=== PATIENT | male | born 1965 | race Caucasian/White ===

== ENCOUNTER 2016-05-23 08:51 | Emergency (ER) | payer OTHER, MEDICAID ==
[~2016-05-23] VITALS: Ht 193 cm; Wt 91.6 kg
[~2016-05-23 08:51] MED LIST: ALBMDI INH; ALPR1TAB2 PO; ALPR2TAB2 PO; BECL8.7A5 INH; BECL8.7A6 IH; HYDR-4100 PO; HYDR2TAB34; IPRA14.73; METHADONE PO; NORCO; TEMAZEPAM; [UNRECOGNIZED DRUG - CODE] PO; [UNRECOGNIZED DRUG - OTHER]; morphine sulfate PO
[2016-05-23 08:57] VITALS: BP 156/78; PULSE 101; RESP 20; TEMP 97.9; O2SAT 97
--- NOTE | 2016-05-23 09:05 | NUR ---
ER at bedside examining patient.
--- NOTE | 2016-05-23 09:06 | NUR ---
Nancie garza in EDM - 05/23/16 at 0910 by CARY Pt placed to ER bed 08 and to sulaiman. Pt report given to JONN Castillo.
--- NOTE | 2016-05-23 09:10 | NUR ---
Pt placed to ER bed 04 and to gown. Pt report given to JONN Castillo.
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
[2016-05-23 09:32] LABS: BASOPHILS % (AUTO) 0.4 % (0.0-2.0); EOSINOPHILS # (AUTO) 0.1 K/uL (0.0-0.4); EOSINOPHILS % (AUTO) 1.2 % (0.0-4.0); HEMATOCRIT 41.5 % (36-54); HEMOGLOBIN 14.1 g/dL (14.0-18.0); LYMPHOCYTES # (AUTO) 2.9 K/uL (1.0-5.5); LYMPHOCYTES % (AUTO) 26.5 % (20.5-51.5); MEAN CORPUSCULAR HEMOGLOBIN 32 pg (27-31); MEAN CORPUSCULAR HGB CONC 34 % (32-36); MEAN CORPUSCULAR VOLUME 94 fL (79.0-98.0); MONOCYTES % (AUTO) 8.8 % (1.7-9.3); NEUTROPHILS % (AUTO) 63.1 % (40.0-70.0); PLATELET COUNT (AUTO) 329 K/uL (130-430); RED BLOOD CELL COUNT(AUTO) 4.44 MIL/uL (4.2-6.2); RED CELL DISTRIBUTION WIDTH 14.3 % (9.0-15.0)
[2016-05-23 09:53] LABS: CALCIUM 8.7 mg/dL (8.4-11.0); CREATININE 0.99 mg/dL (0.55-1.30)
[2016-05-23 09:59] LABS: ALBUMIN 4.2 g/dL (3.4-4.8); TOTAL BILIRUBIN 0.2 mg/dL (0.0-1.0); TOTAL PROTEIN, SERUM 7.2 g/dL (6.4-8.3)
--- NOTE | 2016-05-23 10:00 | NUR ---
Pt to rad dept via ambulation.
--- NOTE | 2016-05-23 10:15 | NUR ---
Pt returned from rad dept. Pt tolerated well.
--- NOTE | 2016-05-23 11:30 | NUR ---
Pt given sling, pt tolerated well.
[2016-05-23 11:38] LABS: BILIRUBIN,URINE NEGATIVE (NEGATIVE); BLOOD, URINE NEGATIVE (NEGATIVE); CLARITY/URINE CLEAR (CLEAR); COLOR,URINE YELLOW (YELLOW); GLUCOSE,URINE NEGATIVE (NEGATIVE); KETONES,URINE NEGATIVE (NEGATIVE); LEUKOCYTE ESTERASE ,URINE NEGATIVE (NEGATIVE); NITRITE, URINE NEGATIVE (NEGATIVE); PH,URINE 5.5 (5.0-8.0); PROTEIN URINE NEGATIVE (NEGATIVE); UROBILINOGEN,URINE 0.2 (0.2-1.0)
[2016-05-23 12:05] VITALS: BP 148/76; PULSE 88; RESP 20; TEMP 97.9; O2SAT 97
--- NOTE | 2016-05-23 12:05 | NUR ---
Patient given written and verbal discharge instructions and verbalizes understanding. ER MD discussed with patient the results and treatment provided. Given copies of tests performed in ER. Patient in stable condition. ID arm band removed. Rx of tramadol,bacitracin given. Patient educated on pain management and to follow up with PMD. Pain Scale 3. Opportunity for questions provided and answered.
== END 2016-05-23 12:05 | disposition home or self-care (01) ==
LOC: SED 08:51
DX: S13.4XXA Sprain of ligaments of cervical spine, initial encounter (principal); S40.011A Contusion of right shoulder, initial encounter; S81.801A Unspecified open wound, right lower leg, initial encounter; J45.909 Unspecified asthma, uncomplicated; J44.9 Chronic obstructive pulmonary disease, unspecified; V89.2XXA Person injured in unspecified motor-vehicle accident, traffic, initial encounter; Y93.89 Activity, other specified; Y92.89 Other specified places as the place of occurrence of the external cause; Y99.8 Other external cause status
CPT/HCPCS: 36415; 72040; 73030; 73590; 80053; 81003; 85025; 99285; J7030

== ENCOUNTER 2016-08-03 08:41 | Emergency (ER) | payer OTHER, MEDICAID ==
[~2016-08-03] VITALS: Ht 193 cm; Wt 88.9 kg
[2016-08-03 08:41] VITALS: BP_SYST 92
[~2016-08-03 08:41] MED LIST changes: -ALPR1TAB2 PO; -BECL8.7A6 IH; -HYDR2TAB34; -METHADONE PO; -NORCO; -TEMAZEPAM; -[UNRECOGNIZED DRUG - OTHER]
[2016-08-03] MEDS ORDERED: IPRATROPIUM BROM 0.5 MG/2.5 ML VIAL.NEB (ATROVENT) INH ONE (08:45)
[2016-08-03] MEDS ORDERED: ALBUTEROL SULFATE 0.083% 2.5 MG/3 ML VIAL.NEB INH ONE ×2 (08:45→08:53)
[2016-08-03] MEDS ORDERED: methylPREDNISolone SOD SUCC/PF 62.5 MG/ML VIAL IVP ONE (08:45)
[2016-08-03 09:08] LABS: BASOPHILS % (AUTO) 0.2 % (0.0-2.0); HEMATOCRIT 44.4 % (36-54); HEMOGLOBIN 14.2 g/dL (14.0-18.0); LYMPHOCYTES # (AUTO) 1.1 K/uL (1.0-5.5); LYMPHOCYTES % (AUTO) 12.6 % (20.5-51.5); MEAN CORPUSCULAR HEMOGLOBIN 30 pg (27-31); MEAN CORPUSCULAR HGB CONC 32 % (32-36); MEAN CORPUSCULAR VOLUME 92 fL (79.0-98.0); MONOCYTES # (AUTO) 0.3 K/uL (0.0-1.0); NEUTROPHILS # (AUTO) 7.4 K/uL (1.8-7.7); NEUTROPHILS % (AUTO) 84.2 % (40.0-70.0); PLATELET COUNT (AUTO) 280 K/uL (130-430); RED BLOOD CELL COUNT(AUTO) 4.82 MIL/uL (4.2-6.2); RED CELL DISTRIBUTION WIDTH 12.5 % (9.0-15.0); WHITE BLOOD COUNT (AUTO) 8.8 K/uL (4.8-10.8)
[2016-08-03 09:10] LABS: CALCIUM 9.5 mg/dL (8.4-11.0); CREATININE 1.02 mg/dL (0.55-1.30); POTASSIUM 4.6 mmol/L (3.5-5.1)
[2016-08-03 09:15] LABS: ALBUMIN 4.4 g/dL (3.4-4.8); TOTAL BILIRUBIN 0.4 mg/dL (0.0-1.0); TOTAL PROTEIN, SERUM 8.2 g/dL (6.4-8.3)
[2016-08-03 09:45] VITALS: BP_SYST 116
== END 2016-08-03 09:45 | disposition home or self-care (01) ==
LOC: SED 08:41
DX: J44.9 Chronic obstructive pulmonary disease, unspecified (principal)
CPT/HCPCS: 36415; 71010; 80053; 83880; 84484; 85025; 93005; 94640; 96374; 99285; J2930

== ENCOUNTER 2016-10-19 12:01 | Emergency (ER) | payer OTHER, MEDICAID ==
[~2016-10-19] VITALS: Ht 193 cm; Wt 81.6 kg
[2016-10-19 12:07] VITALS: BP_SYST 108
[2016-10-19] MEDS ORDERED: IPRATROPIUM/ALBUTEROL SULFATE 3 ML AMPUL.NEB ONE (12:14)
[2016-10-19] MEDS ORDERED: PREDNISONE 20 MG TABLET PO ONE (12:45)
[2016-10-19] MEDS ORDERED: IPRATROPIUM/ALBUTEROL SULFATE 3 ML AMPUL.NEB INH ONE (12:45)
[2016-10-19 13:20] VITALS: BP_SYST 122
== END 2016-10-19 13:20 | disposition home or self-care (01) ==
LOC: SED 12:01
DX: J45.901 Unspecified asthma with (acute) exacerbation (principal); F17.210 Nicotine dependence, cigarettes, uncomplicated
CPT/HCPCS: 36600; 71010; 82803; 94640; 99285; J7512

== ENCOUNTER 2016-11-14 04:15 | Emergency (ER) | payer OTHER, MEDICAID ==
[~2016-11-14] VITALS: Ht 190.5 cm; Wt 81.6 kg
[2016-11-14 04:15] VITALS: BP_SYST 122
--- NOTE | 2016-11-14 04:15 | NUR ---
Patient to ER bed 2 to gown for evaluation. Side rails up.
--- NOTE | 2016-11-14 04:16 | NUR ---
PT IN BED 2 WITH C/O SOB ,COUGH AND TIGHTNESS IN CHEST . HX OF ASTHMA. 02 SATS [address] KAY AWARE.
--- NOTE | 2016-11-14 04:17 | NUR ---
ER at bedside examining patient.
[2016-11-14] MEDS ORDERED: methylPREDNISolone SOD SUCC/PF 62.5 MG/ML VIAL IM ONE (04:30)
[2016-11-14] MEDS ORDERED: IPRATROPIUM/ALBUTEROL SULFATE 3 ML AMPUL.NEB INH ONE ×2 (04:30→05:15)
[2016-11-14] MEDS ORDERED: IPRATROPIUM/ALBUTEROL SULFATE 3 ML AMPUL.NEB ONE (04:36)
--- NOTE | 2016-11-14 04:39 | NUR ---
RT AT PT'S BEDSIDE , TOLERATING RESP TX WELL.
--- NOTE | 2016-11-14 05:10 | NUR ---
RECEIVING RESP TX PER ORDERS , TOLERATED WELL.
[2016-11-14] MEDS ORDERED: KETOROLAC TROMETHAMINE 60 MG/2 ML VIAL IM ONE (06:00)
--- NOTE | 2016-11-14 06:00 | NUR ---
PT STATES HE 'FEELS MUCH BETTER ,' DR KAY AWARE.
--- NOTE | 2016-11-14 06:25 | NUR ---
Patient given written and verbal discharge instructions and verbalizes understanding. ER MD discussed with patient the results and treatment provided. Patient in stable condition. ID arm band removed. Rx of ALBUTEROL,PREDNISONE,ATROVENT given. Patient educated on pain management and to follow up with PMD. Pain Scale 4/10. Opportunity for questions provided and answered.
[2016-11-14 06:29] VITALS: BP_SYST 112
== END 2016-11-14 06:29 | disposition home or self-care (01) ==
LOC: SED 04:15
DX: J44.1 Chronic obstructive pulmonary disease with (acute) exacerbation (principal); R03.0 Elevated blood-pressure reading, without diagnosis of hypertension
CPT/HCPCS: 71010; 94640; 96372; 99284; J1885; J2930

== ENCOUNTER 2016-11-14 11:59 | Emergency (ER) | payer OTHER, MEDICAID ==
[~2016-11-14] VITALS: Ht 190.5 cm; Wt 79.4 kg
[2016-11-14 12:00] VITALS: BP_SYST 119
[2016-11-14] MEDS ORDERED: methylPREDNISolone SOD SUCC/PF 62.5 MG/ML VIAL IVP ONE (12:15)
[2016-11-14] MEDS ORDERED: ALBUTEROL SULFATE 0.083% 2.5 MG/3 ML VIAL.NEB INH ONE ×2 (12:15)
[2016-11-14] MEDS ORDERED: IPRATROPIUM BROM 0.5 MG/2.5 ML VIAL.NEB (ATROVENT) INH ONE ×2 (12:15→12:16)
[2016-11-14 12:27] LABS: BASOPHILS % (AUTO) 0.1 % (0.0-2.0); HEMATOCRIT 43.2 % (36-54); HEMOGLOBIN 14.1 g/dL (14.0-18.0); LYMPHOCYTES # (AUTO) 0.6 K/uL (1.0-5.5); LYMPHOCYTES % (AUTO) 8.3 % (20.5-51.5); MEAN CORPUSCULAR HEMOGLOBIN 30 pg (27-31); MEAN CORPUSCULAR HGB CONC 33 % (32-36); MEAN CORPUSCULAR VOLUME 93 fL (79.0-98.0); MONOCYTES % (AUTO) 0.4 % (1.7-9.3); NEUTROPHILS # (AUTO) 6.9 K/uL (1.8-7.7); NEUTROPHILS % (AUTO) 91.2 % (40.0-70.0); PLATELET COUNT (AUTO) 350 K/uL (130-430); RED BLOOD CELL COUNT(AUTO) 4.66 MIL/uL (4.2-6.2); RED CELL DISTRIBUTION WIDTH 13.4 % (9.0-15.0); WHITE BLOOD COUNT (AUTO) 7.5 K/uL (4.8-10.8)
[2016-11-14 12:35] LABS: CREATININE 1.26 mg/dL (0.55-1.30); POTASSIUM 4.6 mmol/L (3.5-5.1)
[2016-11-14 12:42] LABS: ALBUMIN 4.4 g/dL (3.4-4.8); TOTAL BILIRUBIN 0.6 mg/dL (0.0-1.0)
[2016-11-14] MEDS ORDERED: ALBUTEROL MDI INHALATION 8 GM INH INH ONE (13:30)
[2016-11-14 13:52] VITALS: BP_SYST 144
== END 2016-11-14 13:55 | disposition home or self-care (01) ==
LOC: SED 11:59
DX: J44.1 Chronic obstructive pulmonary disease with (acute) exacerbation (principal); Z79.899 Other long term (current) drug therapy
CPT/HCPCS: 36415; 71010; 80053; 83880; 85025; 85730; 93005; 94640; 96374; 99285; J2930

== ENCOUNTER 2016-11-16 07:30 | Emergency (ER) | payer OTHER, MEDICAID ==
[~2016-11-16] VITALS: Ht 193 cm; Wt 79.4 kg
[2016-11-16 07:41] VITALS: BP_SYST 130
[2016-11-16] MEDS ORDERED: IPRATROPIUM/ALBUTEROL SULFATE 3 ML AMPUL.NEB INH ONE ×2 (07:45→08:15)
[2016-11-16] MEDS ORDERED: NACL 0.9% 500 ML IV ONE (07:45)
[2016-11-16] MEDS ORDERED: NS 500 ML IV ONE (07:45)
[2016-11-16 08:20] LABS: BASOPHILS # (AUTO) 0.1 K/uL (0.0-0.2); BASOPHILS % (AUTO) 0.7 % (0.0-2.0); HEMATOCRIT 42.5 % (36-54); HEMOGLOBIN 13.6 g/dL (14.0-18.0); LYMPHOCYTES # (AUTO) 1.1 K/uL (1.0-5.5); LYMPHOCYTES % (AUTO) 8.1 % (20.5-51.5); MEAN CORPUSCULAR HEMOGLOBIN 29 pg (27-31); MEAN CORPUSCULAR HGB CONC 32 % (32-36); MEAN CORPUSCULAR VOLUME 92 fL (79.0-98.0); MONOCYTES # (AUTO) 0.7 K/uL (0.0-1.0); MONOCYTES % (AUTO) 5.2 % (1.7-9.3); NEUTROPHILS # (AUTO) 11.9 K/uL (1.8-7.7); PLATELET COUNT (AUTO) 334 K/uL (130-430); RED BLOOD CELL COUNT(AUTO) 4.61 MIL/uL (4.2-6.2); RED CELL DISTRIBUTION WIDTH 13.8 % (9.0-15.0)
[2016-11-16 08:22] LABS: WHITE BLOOD COUNT (AUTO) 13.8 K/uL (4.8-10.8)
[2016-11-16 08:31] LABS: CALCIUM 9.3 mg/dL (8.4-11.0); CREATININE 1.03 mg/dL (0.55-1.30); POTASSIUM 4.7 mmol/L (3.5-5.1)
[2016-11-16 08:33] LABS: INR 1.1 (0.80-1.20); PROTHROMBIN TIME 11.6 SECS (9.5-12.5)
[2016-11-16 08:35] LABS: ALBUMIN 4.2 g/dL (3.4-4.8); TOTAL BILIRUBIN 0.3 mg/dL (0.0-1.0)
[2016-11-16] MEDS ORDERED: KETOROLAC TROMETHAMINE 30 MG VIAL IVP ONE (09:00)
[2016-11-16] MEDS ORDERED: MORPHINE 2 MG/ML INJ. SYRINGE IVP ONE (09:30)
[2016-11-16 10:19] VITALS: BP_SYST 130
== END 2016-11-16 10:19 | disposition home or self-care (01) ==
LOC: SED 07:30
DX: J44.1 Chronic obstructive pulmonary disease with (acute) exacerbation (principal)
CPT/HCPCS: 36415; 36600; 71010; 80053; 82803; 83880; 85025; 85610; 85730; 87040; 93005; 94640; 96361; 96374; 96375; 99285; J1885; J2270; J7030

== ENCOUNTER 2018-10-03 07:15 | Emergency (ER) | payer OTHER, MEDICAID ==
[~2018-10-03] VITALS: Ht 193 cm; Wt 87.1 kg
[2018-10-03 07:15] VITALS: BP_SYST 150
[~2018-10-03 07:15] MED LIST changes: -ALBMDI INH; +ALBU2.5V7 INH; +ALPR1TAB2 PO; -BECL8.7A5 INH; -IPRA14.73; +IPRA14.73 IH; -[UNRECOGNIZED DRUG - CODE] PO; -morphine sulfate PO
[2018-10-03] MEDS ORDERED: KETOROLAC TROMETHAMINE 60 MG/2 ML VIAL IM ONE (08:15)
[2018-10-03 08:50] VITALS: BP_SYST 150
== END 2018-10-03 07:35 | disposition home or self-care (01) ==
LOC: SED 07:15
DX: G89.29 Other chronic pain (principal); M25.562 Pain in left knee; J44.9 Chronic obstructive pulmonary disease, unspecified; F12.10 Cannabis abuse, uncomplicated; Z79.899 Other long term (current) drug therapy
CPT/HCPCS: 73552; 96372; 99283; J1885

== ENCOUNTER 2018-11-25 09:18 | Emergency (ER) | payer OTHER, MEDICAID ==
[~2018-11-25] VITALS: Ht 195.6 cm; Wt 90.7 kg
--- NOTE | 2018-11-25 09:22 | NUR ---
RT AT BEDSIDE FOR EVALUATION
[2018-11-25 09:27] VITALS: BP_SYST 153
--- NOTE | 2018-11-25 09:27 | NUR ---
Placed in room 2 . Placed on clutch inspector, blood pressure machine and pulse oximeter. To gown for exam. Side rails up. Assumed care.
--- NOTE | 2018-11-25 09:27 | NUR ---
ISRAEL Wade at bedside examining patient.
[2018-11-25] MEDS ORDERED: IPRATROPIUM/ALBUTEROL SULFATE 3 ML AMPUL.NEB (DUONEB) INH ONE ×2 (09:30→10:15)
--- NOTE | 2018-11-25 09:45 | NUR ---
Patient ambulatory, AAOX4, into to ED c/o shortness of breath started last night. patient has history COPD, asthma, and chronic back pain. Past surgery include facial reconstruction, verbrae repalcement, lower back fusion, reconstructive surgery of left femur, mutliple surgery on jaw. Currently taking [place], combivent, ventolin and pepci. will continue to monitor
--- NOTE | 2018-11-25 09:45 | NUR ---
Patient drove himself to ED with O2 tank nasal canula with self administering 5 L of oxygen. Patient c/o SOB. Patient smoke cigarettes, 3 daily. Patient denies nausea, vomiting and diarrhea. Patient also complain of 10/10 pain on left side of jaw where he states he has an abscess. Patient last cigarette was last night. Will continue to monitor.
[2018-11-25] MEDS ORDERED: methylPREDNISolone SOD SUCC/PF 62.5 MG/ML VIAL IVP ONE (10:15)
[2018-11-25] MEDS ORDERED: KETOROLAC TROMETHAMINE 30 MG VIAL IVP ONE (10:15)
[2018-11-25] MEDS ORDERED: LEVOFLOXACIN 500 MG TABLET PO ONE (10:30)
[2018-11-25 10:42] LABS: BASOPHILS # (AUTO) 0.1 K/uL (0.0-0.2); BASOPHILS % (AUTO) 0.8 % (0.0-2.0); EOSINOPHILS # (AUTO) 0.3 K/uL (0.0-0.4); EOSINOPHILS % (AUTO) 3.6 % (0.0-4.0); HEMATOCRIT 39.6 % (36-54); HEMOGLOBIN 13.2 g/dL (14.0-18.0); LYMPHOCYTES # (AUTO) 1.8 K/uL (1.0-5.5); LYMPHOCYTES % (AUTO) 22.2 % (20.5-51.5); MEAN CORPUSCULAR HEMOGLOBIN 30 pg (27-31); MEAN CORPUSCULAR HGB CONC 33 % (32-36); MEAN CORPUSCULAR VOLUME 91 fL (79.0-98.0); MONOCYTES # (AUTO) 0.8 K/uL (0.0-1.0); NEUTROPHILS # (AUTO) 5.3 K/uL (1.8-7.7); NEUTROPHILS % (AUTO) 63.4 % (40.0-70.0); PLATELET COUNT (AUTO) 267 K/uL (130-430); RED BLOOD CELL COUNT(AUTO) 4.38 MIL/uL (4.2-6.2); RED CELL DISTRIBUTION WIDTH 14.2 % (9.0-15.0); WHITE BLOOD COUNT (AUTO) 8.3 K/uL (4.8-10.8)
[2018-11-25 10:45] LABS: CALCIUM 8.5 mg/dL (8.4-11.0); CREATININE 0.75 mg/dL (0.55-1.30); POTASSIUM 4.4 mmol/L (3.5-5.1)
[2018-11-25 10:51] LABS: ALBUMIN 3.7 g/dL (3.4-4.8); TOTAL BILIRUBIN 0.3 mg/dL (0.0-1.0)
--- NOTE | 2018-11-25 11:06 | NUR ---
DR REA AT BEDSIDE FOR RE-EVALUATION
[2018-11-25 11:32] VITALS: BP_SYST 121
--- NOTE | 2018-11-25 11:32 | NUR ---
Patient given written and verbal discharge instructions and verbalizes understanding. ER MD discussed with patient the results and treatment provided. Patient in stable condition. ID arm band removed. IV catheter removed intact and dressing applied, no active bleeding. Rx of levaquin, flagyl and norco given. Patient educated on pain management and to follow up with PMD. Pain Scale 8/10. Opportunity for questions provided and answered. Medication side effect fact sheet provided.
== END 2018-11-25 11:32 | disposition home or self-care (01) ==
LOC: SED 09:18
DX: J44.1 Chronic obstructive pulmonary disease with (acute) exacerbation (principal); K02.9 Dental caries, unspecified; K04.7 Periapical abscess without sinus; F17.210 Nicotine dependence, cigarettes, uncomplicated; Z79.899 Other long term (current) drug therapy; Z88.8 Allergy status to other drugs, medicaments and biological substances; Z71.6 Tobacco abuse counseling
CPT/HCPCS: 36415; 71045; 80053; 83605; 83880; 84484; 85025; 87040; 93005; 94640; 96374; 96375; 99284; J1885; J2930; J7620

== ENCOUNTER 2021-02-28 12:43 | Emergency (ER) | payer OTHER, MEDICAID, SELFPAY ==
[~2021-02-28] VITALS: Ht 190.5 cm; Wt 90.3 kg
[~2021-02-28 12:43] MED LIST changes: +HYDR-3927 PO; -HYDR-4100 PO
[2021-02-28 12:45] VITALS: BP_SYST 120
--- NOTE | 2021-02-28 12:45 | NUR ---
pt. arrived via wheelchair with caregiver, has complaints of 10/10 body aches and more that unusual SOB, pt. has COPD X 3 years and uses O2 at home regularly but today feels very SOB, had fever 4 days ago of 102
[2021-02-28] MEDS ORDERED: ALBUTEROL SULFATE 0.083% 2.5 MG/3 ML VIAL.NEB INH ONE (13:00)
[2021-02-28] MEDS ORDERED: IPRATROPIUM BROM 0.5 MG/2.5 ML VIAL.NEB (ATROVENT) INH ONE (13:00)
--- NOTE | 2021-02-28 13:25 | NUR ---
chest xray being done out in tent
--- NOTE | 2021-02-28 13:42 | NUR ---
RT at bedside for breathing tx.
--- NOTE | 2021-02-28 13:42 | NUR ---
ISRAEL Hill in tent examining patient.
[2021-02-28 14:18] LABS: BASOPHILS % (AUTO) 0.8 % (0.0-2.0); EOSINOPHILS # (AUTO) 0.2 K/uL (0.0-0.4); EOSINOPHILS % (AUTO) 3.5 % (0.0-4.0); HEMATOCRIT 39.4 % (36-54); HEMOGLOBIN 13.3 g/dL (14.0-18.0); LYMPHOCYTES # (AUTO) 1.7 K/uL (1.0-5.5); LYMPHOCYTES % (AUTO) 27.2 % (20.5-51.5); MEAN CORPUSCULAR HEMOGLOBIN 31 pg (27-31); MEAN CORPUSCULAR HGB CONC 34 % (32-36); MEAN CORPUSCULAR VOLUME 91 fL (79.0-98.0); MONOCYTES # (AUTO) 0.6 K/uL (0.0-1.0); MONOCYTES % (AUTO) 8.7 % (1.7-9.3); NEUTROPHILS # (AUTO) 3.8 K/uL (1.8-7.7); NEUTROPHILS % (AUTO) 59.8 % (40.0-70.0); PLATELET COUNT (AUTO) 214 K/uL (130-430); RED BLOOD CELL COUNT(AUTO) 4.31 MIL/uL (4.2-6.2); RED CELL DISTRIBUTION WIDTH 13.6 % (9.0-15.0); WHITE BLOOD COUNT (AUTO) 6.4 K/uL (4.8-10.8)
[2021-02-28 14:30] LABS: CALCIUM 9.3 mg/dL (8.4-11.0); CHLORIDE 96 mmol/L (98-107); CREATININE 0.71 mg/dL (0.55-1.30); GLUCOSE 108 mg/dL (70-99); SODIUM SERUM 131 mmol/L (136-145); UREA NITROGEN, BLOOD 19 mg/dL (8-21)
[2021-02-28] MEDS ORDERED: KETOROLAC TROMETHAMINE 30 MG VIAL IM ONE (14:30)
[2021-02-28 14:36] LABS: ALANINE AMINOTRANSFERASE 23 U/L (12-78); ALBUMIN 3.7 g/dL (3.4-4.8); ASPARTATE AMINOTRANSFERASE 15 U/L (10-37); TOTAL BILIRUBIN 0.3 mg/dL (0.0-1.0)
[2021-02-28 14:39] LABS: ANION GAP < 3 (5-15); GFR AFRICAN AMERICAN 148 mL/min (>90)
[2021-02-28] MEDS ORDERED: ZIT250 PO (15:08)
[2021-02-28] MEDS ORDERED: PRED20TA PO (15:08)
--- NOTE | 2021-02-28 15:15 | NUR ---
Dr. Hussain barclay bedside reviewed lab results and POC
[2021-02-28] MEDS ORDERED: predniSONE 20 MG TABLET ONE (15:33)
[2021-02-28 15:45] VITALS: BP_SYST 136
[2021-02-28] MEDS ORDERED: predniSONE 20 MG TABLET PO ONE (15:45)
[2021-02-28] MEDS ORDERED: prednisoLONE 15 MG/5 ML UDC PO ONE (15:45)
--- NOTE | 2021-02-28 15:46 | NUR ---
Patient given written and verbal discharge instructions and verbalizes understanding. ER Dr. Nixon discussed with patient the results and treatment provided. Patient in stable condition. ID arm band removed. Rx of Prednisone and zithromax given. Patient educated on pain management and to follow up with PMD. Pain Scale 7. Opportunity for questions provided and answered. Medication side effect fact sheet provided.
== END 2021-02-28 15:46 | disposition home or self-care (01) ==
LOC: SED 12:43
DX: J44.1 Chronic obstructive pulmonary disease with (acute) exacerbation (principal); Z88.8 Allergy status to other drugs, medicaments and biological substances; Z20.822 Contact with and (suspected) exposure to COVID-19
CPT/HCPCS: 36415; 71045; 80053; 83605; 84484; 85025; 85610; 85730; 87040; 87426; 93005; 94640; 96372; 99285; J1885; J7512; J7613

== ENCOUNTER 2021-05-12 00:38 | Emergency (ER) | payer OTHER, MEDICAID ==
[~2021-05-12] VITALS: Ht 193 cm; Wt 99.8 kg
[~2021-05-12 00:38] MED LIST changes: +PRED20TA PO; +ZIT250 PO
[2021-05-12 00:40] VITALS: BP_SYST 167
[2021-05-12] MEDS ORDERED: IPRATROPIUM/ALBUTEROL SULFATE 3 ML AMPUL.NEB (DUONEB) ONE (00:43)
[2021-05-12] MEDS ORDERED: methylPREDNISolone SOD SUCC/PF 62.5 MG/ML VIAL IVP ONE (00:45)
[2021-05-12] MEDS ORDERED: ASPIRIN 81 MG TAB.CHEW PO ONE (00:45)
[2021-05-12] MEDS ORDERED: IPRATROPIUM/ALBUTEROL SULFATE 3 ML AMPUL.NEB (DUONEB) INH ONE (00:45)
[2021-05-12] MEDS ORDERED: KETOROLAC TROMETHAMINE 30 MG VIAL ONE (01:07)
[2021-05-12] MEDS ORDERED: KETOROLAC TROMETHAMINE 30 MG VIAL IVP ONE (01:15)
[2021-05-12] MEDS ORDERED: NACL 0.9% 1,000 ML IV ONE (01:15)
[2021-05-12 02:02] LABS: BASOPHILS # (AUTO) 0.1 K/uL (0.0-0.2); BASOPHILS % (AUTO) 0.7 % (0.0-2.0); EOSINOPHILS # (AUTO) 0.5 K/uL (0.0-0.4); EOSINOPHILS % (AUTO) 5.5 % (0.0-4.0); HEMATOCRIT 40.3 % (36-54); LYMPHOCYTES # (AUTO) 2.5 K/uL (1.0-5.5); LYMPHOCYTES % (AUTO) 28.5 % (20.5-51.5); MEAN CORPUSCULAR HEMOGLOBIN 30 pg (27-31); MEAN CORPUSCULAR HGB CONC 32 % (32-36); MEAN CORPUSCULAR VOLUME 94 fL (79.0-98.0); MONOCYTES # (AUTO) 0.9 K/uL (0.0-1.0); MONOCYTES % (AUTO) 9.8 % (1.7-9.3); NEUTROPHILS # (AUTO) 4.8 K/uL (1.8-7.7); NEUTROPHILS % (AUTO) 55.5 % (40.0-70.0); PLATELET COUNT (AUTO) 274 K/uL (130-430); RED BLOOD CELL COUNT(AUTO) 4.29 MIL/uL (4.2-6.2); RED CELL DISTRIBUTION WIDTH 14.8 % (9.0-15.0); WHITE BLOOD COUNT (AUTO) 8.7 K/uL (4.8-10.8)
[2021-05-12] MEDS ORDERED: MORPHINE 4 MG INJ. 4 MG/ML VIAL IVP ONE (02:30)
[2021-05-12] MEDS ORDERED: P-EPHED SUL/LORATADINE TAB.SR.12H PO ONE (03:00)
[2021-05-12] MEDS ORDERED: MORPHINE 4 MG INJ. 4 MG/ML VIAL ONE (03:05)
[2021-05-12 04:14] LABS: ALBUMIN 3.8 g/dL (3.4-4.8); CALCIUM 9.3 mg/dL (8.4-11.0); CREATININE 1.19 mg/dL (0.55-1.30); TOTAL BILIRUBIN 1.3 mg/dL (0.0-1.0)
[2021-05-12 04:47] LABS: POTASSIUM 4.8 mmol/L (3.5-5.1)
[2021-05-12 04:53] VITALS: BP_SYST 122
[2021-05-12] MEDS ORDERED: ALBU2.5V7 INH (05:06)
[2021-05-12] MEDS ORDERED: PRED20TA PO (05:06)
== END 2021-05-12 06:48 | disposition home or self-care (01) ==
LOC: SED 00:38
DX: J44.1 Chronic obstructive pulmonary disease with (acute) exacerbation (principal); F12.90 Cannabis use, unspecified, uncomplicated; Z79.899 Other long term (current) drug therapy
CPT/HCPCS: 36415; 71045; 80053; 83605; 83880; 84484; 85025; 87040; 93005; 94640; 96361; 96374; 96375; 99285; G0482; J1885; J2270; J2930; J7030

== ENCOUNTER 2023-02-09 13:20 | Inpatient (IN) | payer OTHER, MEDICAID ==
[~2023-02-09] VITALS: Ht 193 cm; Wt 86.6 kg
[2023-02-09] VITALS (7 sets, daily range): BP systolic 103–147; PULSE 112–135; RESP 18–38; TEMP 97.4–98.9; O2SAT 97–98
[2023-02-09] MEDS ORDERED: IPRATROPIUM BROM 0.5 MG/2.5 ML VIAL.NEB (ATROVENT) INH ONE ×2 (13:25→13:30)
[2023-02-09] MEDS ORDERED: ALBUTEROL SULFATE 0.083% 2.5 MG/3 ML VIAL.NEB INH ONE ×2 (13:25→13:30)
[2023-02-09] MEDS ORDERED: methylPREDNISolone SOD SUCC/PF 62.5 MG/ML VIAL IVP ONE (13:30)
[2023-02-09] MEDS ORDERED: MAGNESIUM SULFATE 50 ML IV ONE (13:30)
[2023-02-09 13:59] LABS: BASOPHILS # (AUTO) 0.1 K/uL (0.0-0.2); BASOPHILS % (AUTO) 0.5 % (0.0-2.0); EOSINOPHILS # (AUTO) 0.3 K/uL (0.0-0.4); HEMATOCRIT 39.7 % (36-54); HEMOGLOBIN 12.9 g/dL (14.0-18.0); LYMPHOCYTES # (AUTO) 3.2 K/uL (1.0-5.5); LYMPHOCYTES % (AUTO) 28.9 % (20.5-51.5); MEAN CORPUSCULAR HEMOGLOBIN 30 pg (27-31); MEAN CORPUSCULAR HGB CONC 32 % (32-36); MEAN CORPUSCULAR VOLUME 94 fL (79.0-98.0); MONOCYTES # (AUTO) 1.2 K/uL (0.0-1.0); MONOCYTES % (AUTO) 10.9 % (1.7-9.3); NEUTROPHILS # (AUTO) 6.3 K/uL (1.8-7.7); NEUTROPHILS % (AUTO) 56.7 % (40.0-70.0); PLATELET COUNT (AUTO) 387 K/uL (130-430); RED BLOOD CELL COUNT(AUTO) 4.24 MIL/uL (4.2-6.2); RED CELL DISTRIBUTION WIDTH 15.1 % (9.0-15.0); WHITE BLOOD COUNT (AUTO) 11.1 K/uL (4.8-10.8)
[2023-02-09 14:13] LABS: ALANINE AMINOTRANSFERASE 27 U/L (12-78); ALBUMIN 3.6 g/dL (3.4-4.8); ASPARTATE AMINOTRANSFERASE 16 U/L (10-37); BILIRUBIN,DIRECT 0.1 mg/dL (0.0-0.3); CALCIUM 9.7 mg/dL (8.4-11.0); CHLORIDE 101 mmol/L (98-107); CREATININE 0.76 mg/dL (0.55-1.30); GFR AFRICAN AMERICAN 136 mL/min (>90); GLUCOSE 131 mg/dL (74-106); SODIUM SERUM 139 mmol/L (136-145); TOTAL BILIRUBIN 0.2 mg/dL (0.0-1.0); TOTAL PROTEIN, SERUM 7.9 g/dL (6.4-8.3); UREA NITROGEN, BLOOD 19 mg/dL (8-21)
[2023-02-09 14:14] LABS: ANION GAP < 3 (5-15); CARBON DIOXIDE 40 mmol/L (23-29); GFR NON AFRICAN-AMERICAN 112 mL/min (>90)
[2023-02-09 14:20] LABS: INFLUENZA TYPE A Negative (NEGATIVE); INFLUENZA TYPE B NEGATIVE (NEGATIVE)
[2023-02-09] MEDS ORDERED: KETOROLAC TROMETHAMINE 15 MG VIAL IVP ONE (14:30)
[2023-02-09] MEDS ORDERED: ZOLPIDEM TARTRATE 5 MG TABLET PO PRN (18:00)
[2023-02-09] MEDS ORDERED: DEXTROSE 50% JECT 50 ML DISP.SYRIN IVP PRN (18:00)
[2023-02-09] MEDS ORDERED: ACETAMINOPHEN 500 MG TABLET PO PRN ×3 (18:00)
[2023-02-09] MEDS ORDERED: NALOXONE HCL 0.4 MG/ML AMP (NARCAN) IVP PRN ×2 (18:00)
[2023-02-09] MEDS ORDERED: MUPIROCIN 2% TOPICAL OINTMENT 22 GM NS PRN (18:00)
[2023-02-09] MEDS ORDERED: MAGNESIUM SULFATE 50 ML IV PRN (18:00)
[2023-02-09] MEDS ORDERED: DOCUSATE SODIUM 100 MG CAPSULE PO PRN (18:00)
[2023-02-09] MEDS ORDERED: MORPHINE 2 MG/ML INJ. SYRINGE IVP PRN ×2 (18:00)
[2023-02-09] MEDS ORDERED: ONDANSETRON HCL 4 MG/2 ML VIAL IVP PRN (18:00)
[2023-02-09] MEDS ORDERED: POTASSIUM CHLORIDE 20 MEQ TABLET.ER PO PRN (18:00)
[2023-02-09] MEDS: NACL 0.9% 1,000 ML IV SCH (18:58)
[2023-02-09] MEDS: HEPARIN SODIUM,PORCINE 5,000 UNITS/ML VIAL SUBCUT SCH (20:57)
[2023-02-09] MEDS: IPRATROPIUM/ALBUTEROL SULFATE 3 ML AMPUL.NEB (DUONEB) INH PRN ×2 (21:00→23:08)
[2023-02-09] MEDS: methylPREDNISolone SOD SUCC/PF 62.5 MG/ML VIAL IVP SCH (21:29)
[2023-02-09] MEDS: OXYCODONE/ACETAMINOPHEN 5-325 TABLET PO PRN (21:50)
[2023-02-10] VITALS (8 sets, daily range): BP systolic 103–125; PULSE 111–118; RESP 20–22; TEMP 97.4–98.8; O2SAT 91–99
[2023-02-10] MEDS: OXYCODONE/ACETAMINOPHEN 5-325 TABLET PO PRN (05:32)
[2023-02-10] MEDS: NACL 0.9% 1,000 ML IV SCH ×2 (06:45→19:15)
[2023-02-10 08:11] LABS: BASOPHILS % (AUTO) 0.1 % (0.0-2.0); HEMATOCRIT 38.8 % (36-54); HEMOGLOBIN 12.3 g/dL (14.0-18.0); LYMPHOCYTES # (AUTO) 0.4 K/uL (1.0-5.5); LYMPHOCYTES % (AUTO) 4.5 % (20.5-51.5); MEAN CORPUSCULAR HEMOGLOBIN 29 pg (27-31); MEAN CORPUSCULAR HGB CONC 32 % (32-36); MEAN CORPUSCULAR VOLUME 93 fL (79.0-98.0); MONOCYTES # (AUTO) 0.1 K/uL (0.0-1.0); MONOCYTES % (AUTO) 0.6 % (1.7-9.3); NEUTROPHILS # (AUTO) 8.4 K/uL (1.8-7.7); NEUTROPHILS % (AUTO) 94.8 % (40.0-70.0); PLATELET COUNT (AUTO) 361 K/uL (130-430); RED BLOOD CELL COUNT(AUTO) 4.18 MIL/uL (4.2-6.2); RED CELL DISTRIBUTION WIDTH 14.6 % (9.0-15.0); WHITE BLOOD COUNT (AUTO) 8.8 K/uL (4.8-10.8)
[2023-02-10] MEDS ORDERED: NALOXONE HCL 0.4 MG/ML AMP (NARCAN) IVP PRN (08:15)
[2023-02-10 08:18] LABS: CALCIUM 9.5 mg/dL (8.4-11.0); CREATININE 0.84 mg/dL (0.55-1.30); POTASSIUM 4.8 mmol/L (3.5-5.1)
[2023-02-10] MEDS: HEPARIN SODIUM,PORCINE 5,000 UNITS/ML VIAL SUBCUT SCH ×2 (09:00→21:55)
[2023-02-10] MEDS: MORPHINE 2 MG/ML INJ. SYRINGE IVP PRN ×3 (09:20→21:34)
[2023-02-10 09:34] LABS: BARBITURATE, URINE NEGATIVE (NEG <=200); BENZODIAZEPINE, URINE NEGATIVE (NEG <=150); CANNABINOID, URINE NEGATIVE (NEG <=50); COCAINE, URINE NEGATIVE (NEG <=150); METHAMPHETAMINES SCREEN,URINE NEGATIVE (NEG <=500); OPIATE, URINE POSITIVE (NEG <=100); PHENCYCLIDINE SCREEN,URINE NEGATIVE (NEG <=25); URINE AMPHETAMINE NEGATIVE (NEG <=500); URINE METHADONE NEGATIVE (NEG <=200); URINE OXYCODONE SCREEN POSITIVE (NEG <=100)
[2023-02-10 09:35] LABS: UR TRICYCLIC ANTIDEPRESSANTS POSITIVE (NEG <=300)
[2023-02-10] MEDS: methylPREDNISolone SOD SUCC/PF 62.5 MG/ML VIAL IVP SCH ×2 (11:11→21:33)
[2023-02-11 00:21] VITALS: BP_SYST 118; PULSE 105; RESP 18; TEMP 98.1; O2SAT 94
[2023-02-11] MEDS: LORazepam 2 MG/ML VIAL IVP PRN ×3 (03:07→14:26)
[2023-02-11] MEDS: MORPHINE 2 MG/ML INJ. SYRINGE IVP PRN ×2 (05:01→12:32)
[2023-02-11 07:17] LABS: CREATININE 0.76 mg/dL (0.55-1.30); POTASSIUM 5.3 mmol/L (3.5-5.1)
[2023-02-11 07:25] LABS: BASOPHILS % (AUTO) 0.1 % (0.0-2.0); HEMATOCRIT 38.1 % (36-54); LYMPHOCYTES # (AUTO) 0.5 K/uL (1.0-5.5); LYMPHOCYTES % (AUTO) 2.6 % (20.5-51.5); MEAN CORPUSCULAR HEMOGLOBIN 29 pg (27-31); MEAN CORPUSCULAR HGB CONC 32 % (32-36); MEAN CORPUSCULAR VOLUME 93 fL (79.0-98.0); MONOCYTES # (AUTO) 0.8 K/uL (0.0-1.0); NEUTROPHILS # (AUTO) 18.7 K/uL (1.8-7.7); NEUTROPHILS % (AUTO) 93.3 % (40.0-70.0); PLATELET COUNT (AUTO) 347 K/uL (130-430); RED CELL DISTRIBUTION WIDTH 15.3 % (9.0-15.0)
[2023-02-11] MEDS: NACL 0.9% 1,000 ML IV SCH (07:45)
[2023-02-11 08:00] VITALS: O2SAT 94
[2023-02-11] MEDS: methylPREDNISolone SOD SUCC/PF 62.5 MG/ML VIAL IVP SCH (08:11)
[2023-02-11] MEDS: HEPARIN SODIUM,PORCINE 5,000 UNITS/ML VIAL SUBCUT SCH (09:00)
[2023-02-11] MEDS: INSULIN LISPRO SLIDING SCALE 100 UNITS/ML, 3 ML VIAL (humaLOG) SUBCUT PRN ×2 (12:11→18:17)
[2023-02-11 18:09] VITALS: BP_SYST 148; PULSE 89; RESP 18; TEMP 98.2; O2SAT 94
== END 2023-02-11 18:34 | disposition home or self-care (01) | DRG 189 ==
LOC: SED 13:20 → SMU 15:22
PROVIDERS: ADMIT General Practice; ATTEND General Practice
DX: J96.21 Acute and chronic respiratory failure with hypoxia (principal); J44.1 Chronic obstructive pulmonary disease with (acute) exacerbation; F11.20 Opioid dependence, uncomplicated; H54.61 Unqualified visual loss, right eye, normal vision left eye; M54.9 Dorsalgia, unspecified; G89.29 Other chronic pain; Z20.822 Contact with and (suspected) exposure to COVID-19; Z87.891 Personal history of nicotine dependence; Z88.8 Allergy status to other drugs, medicaments and biological substances; Z79.899 Other long term (current) drug therapy
CPT/HCPCS: 36415; 71045; 80048; 80076; 80307; 82962; 83037; 83605; 83735; 83880; 84484; 85025; 87040; 93005; 94640; 94760; 99285; J1644; J1885; J2060; J2270; J2930; J3475